=== PATIENT | male | born 1980 | race Caucasian/White ===

== ENCOUNTER 2024-12-24 14:16 | Emergency (ER) | payer SELFPAY ==
--- NOTE | 2024-12-24 15:20 | RAD REPORT ---
EXAMINATION: XR Foot Right 3 View CLINICAL INDICATION: Male, 44 years old. [facility] Bed Name: [id number] TECHNIQUE: 3 view radiographs of the right foot were obtained. COMPARISON: No prior exam. FINDINGS: No evidence of fracture. Joint space widening with slight lateral subluxation of the fifth digit proximal interphalangeal joint. No evidence of arthropathy or other focal bone lesion. Soft tissues are unremarkable. No soft tissue swelling. No significant degenerative changes. IMPRESSION: Joint space widening with slight lateral subluxation of the fifth digit proximal interphalangeal join t. No evidence of a displaced fracture.
--- NOTE | 2024-12-24 16:15 | EDPHYS ---
Physician Documentation [facility] Name: Angelo Choudhary Age: 44 yrs Sex: Male : 1980 Arrival Date: 12/24/2024 Time: 14:16 Bed 12 Private MD: ED Physician Shubham Martins HPI: 12/24 16:09 This 44 yrs old Male presents to ER via Wheelchair with complaints of Right Foot Injury.rn 16:09 Onset: The symptoms/episode began/occurred just prior to arrival. Patient reports rn injury to right foot, dorsal midfoot, after dog was digging in the sand and struck his foot with his paw. Reports previous injuries to his foot but not aware of any fractures. Patient reports pain to the distal foot and lateral foot. No open wounds. No gross deformity or swelling.. Historical: - Allergies: 16:25 No Known Allergies; jl7 - Family history:: not pertinent. - Hospitalizations: : No recent hospitalization is reported. ROS: 16:09 Constitutional: Negative for fever, chills, and weight loss, MS/Extremity: Positive for rn right foot injury and pain Exam: 16:09 Constitutional: This is a well developed, well nourished patient who is awake, alert, rn and in no acute distress. MS/ Extremity: Pulses equal, no cyanosis. Tenderness along entire distal foot and dorsum midfoot. Focal tenderness at the base of the 4th and 5th toes. No gross deformity. Vital Signs: 14:31 BP 114 / 73; Pulse 76; Resp 17; Temp 97.2; Pulse Ox 97% ; Weight 90.72 kg; Height 6 ft. jl7 2 in. ; Pain 8/10; 14:31 Body Mass Index 25.68 (90.72 kg, 187.96 cm) jl7 14:31 Pain Scale: Adult jl7 MDM: 14:24 Medical Screening Exam initiated rn 16:09 Differential diagnosis: fracture, sprain, Dislocation, contusion. Data reviewed: vital rn signs, nurses notes, radiologic studies, plain films, and as a result, I will discharge patient. Counseling: I had a detailed discussion with the patient and/or guardian regarding the historical points, exam findings, and any diagnostic results supporting the discharge/admit diagnosis, radiology results, the need for outpatient follow up, to return to the emergency department if symptoms worsen or persist or if there are any questions or concerns that arise at home. Special discussion: I discussed with the patient/guardian in detail that at this point there is no indication for admission to the hospital. It is understood, however, that if the symptoms persist or worsen the patient needs to return immediately for re-evaluation. Based on the history and exam findings, there is no indication for further emergent testing or inpatient evaluation. I discussed with the patient/guardian the need to see the orthopedic surgeon for further evaluation of the symptoms. ED course: X-ray shows slight subluxation of the distal fifth toe. Does not seem like complete dislocation rather mild subluxation. Patient reports previous injuries to that toe and not sure if previous injury is what we are seeing. Attempted slight reduction with traction and patient declines formal attempt at manipulation. Will kenisha tape toes and discharged with Ortho follow-up.. 12/24 14:31 Order name: XRAY Foot RIGHT 3 View; Complete Time: 15:25 rn 12/24 16:14 Order name: Splint: kenisha tape 4th/5th toes of right foot; Complete Time: 16:16 rn Administered Medications: 16:28 Drug: HYDROcodone-acetaminophen PO 5 mg-325 mg 1 tabs PO once Route: PO; jl7 Disposition Summary: 12/24/24 16:14 Discharge Ordered Notes: Location: Home rn Problem: new rn Symptoms: have improved rn Condition: Stable rn Diagnosis - Contusion of right foot rn - Subluxation of interphalangeal joint of right lesser toe(s), initial encounter rn Followup: rn - With: Donald Freeman MD - When: As needed - Reason: Recheck today's complaints, Re-evaluation by your physician Discharge Instructions: - Discharge Summary Sheet rn - Foot Contusion rn Forms: - Medication Reconciliation Form rn - Antibiotic business analyst intern - Prescription Opioid Use rn - Patient Portal Instructions rn - Leadership Thank You Letter rn Prescriptions: - Tramadol 50 mg Oral Tablet - take 1 tablet ORAL route every 8 hours as needed; 12 tablet; Refills: 0, rn Product Selection Permitted Signatures: Dispatcher [employer] EDShubham Ca MD MD rn Leal, Jahala, RN RN jl7
--- NOTE | 2024-12-24 16:15 | ER ---
Nurse's Notes [facility] Name: Angelo Choudhary Age: 44 yrs Sex: Male : 1980 Arrival Date: 12/24/2024 Time: 14:16 Bed 12 Private MD: Diagnosis: Contusion of right foot;Subluxation of interphalangeal joint of right lesser toe(s), initial encounter Presentation: 12/24 14:31 Chief complaint: Patient states: Right foot pain after dog was attempting to pull away jl7 from pt and stepped on top of foot, swelling noted. Coronavirus screen: At this time, the client does not indicate any symptoms associated with coronavirus-19. Ebola Screen: No symptoms or risks identified at this time. Initial Sepsis Screen: Does the patient meet any 2 criteria? No. Patient's initial sepsis screen is negative. Does the patient have a suspected source of infection? No. Patient's initial sepsis screen is negative. Risk Assessment: Do you want to hurt yourself or someone else?. Onset of symptoms was December 24, 2024. 14:31 Method Of Arrival: Wheelchair jl7 14:31 Acuity: ARELIS 4 jl7 Historical: - Allergies: 16:25 No Known Allergies; jl7 - Family history:: not pertinent. - Hospitalizations: : No recent hospitalization is reported. Assessment: 16:28 Reassessment: Patient is alert, oriented x 3, equal unlabored respirations, skin jl7 warm/dry/pink. right 4th and 5th toes kenisha taped per MD orders. . Vital Signs: 14:31 BP 114 / 73; Pulse 76; Resp 17; Temp 97.2; Pulse Ox 97% ; Weight 90.72 kg; Height 6 ft. jl7 2 in. ; Pain 8/10; 14:31 Body Mass Index 25.68 (90.72 kg, 187.96 cm) jl7 14:31 Pain Scale: Adult jl7 ED Course: 14:21 Patient arrived in ED. cj3 14:23 Shubham Martins MD is Attending Physician. rn 14:33 Triage completed. jl7 15:03 XRAY Foot RIGHT 3 View In Process Unspecified. EDMS 16:13 Donald Freeman MD is Referral Physician. rn Administered Medications: 16:28 Drug: HYDROcodone-acetaminophen PO 5 mg-325 mg 1 tabs PO once Route: PO; jl7 Outcome: 16:14 Discharge ordered by . rn 16:30 Discharged to home via wheelchair, with significant other, saige 16:30 Condition: stable 16:30 Discharge instructions given to patient, Instructed on discharge instructions, follow up and referral plans. medication usage, Demonstrated understanding of instructions, follow-up care, medications, Prescriptions given X 1, 16:33 Patient left the ED. saige Signatures: Dispatcher [employer] EDMS Shubham Martins MD MD rn Leal, Jahala, RN RN jl7 Rebecca Childs [email or web address]
[2024-12-24] MEDS ORDERED: HYDROCODONE/APAP 5/325 MG TAB ONE (16:17)
[2024-12-24 16:37] VITALS: BP 114/73; TEMP 97.2; O2SAT 97
== END 2024-12-24 16:33 | disposition home or self-care (01) ==
LOC: ER 14:16
DX: S93.134A Subluxation of interphalangeal joint of right lesser toe(s), initial encounter (principal); S90.31XA Contusion of right foot, initial encounter
CPT/HCPCS: 99283